=== PATIENT | male | born 1975 | race Caucasian/White ===

== ENCOUNTER → 2020-08-29 | Outpatient (CLI) | payer BC | END | disposition home or self-care (01) | LOC: DAH 10:00 → EDSTATUS 09-05 15:17 | PROVIDERS: ATTEND Family Medicine | DX: Z01.812 Encounter for preprocedural laboratory examination (principal); Z20.828 Contact with and (suspected) exposure to other viral communicable diseases; K31.7 Polyp of stomach and duodenum | CPT/HCPCS: C9803; U0003 ==

== ENCOUNTER 2020-09-26 06:25 | Day surgery (SDC) | payer BC ==
[2020-09-26] VITALS (9 sets, daily range): BP systolic 104–126; BP diastolic 58–90
[~2020-09-26] VITALS: Ht 172.7 cm; Wt 79.4 kg
[~2020-09-26 06:25] MED LIST: BUPR-317 PO; FLUT16H NASAL; OMEP-272 PO; SODIUM CHLORIDE 0.9% 1000ML 1,000 ML IV ONE; TAMS-1 PO; [UNRECOGNIZED DRUG - OTHER] PO
--- NOTE | 2020-09-26 07:30 | NUR ---
Holding area A&O. Denies pain. NPO 09/25/2020 2330. No implants noted. Side rails X2. VS stable. Emergency contact Mother Zulema Maradiaga [phone]. Belongings at bedside.
[2020-09-26] MEDS ORDERED: PROPOFOL 10 MG/ML 20ML VIAL IV ONE ×3 (08:36→08:44)
== END 2020-09-26 09:48 | disposition home or self-care (01) ==
LOC: DAH 06:25 → ENDO 06:25
PROVIDERS: ATTEND Internal Medicine Gastroenterology
DX: K31.7 Polyp of stomach and duodenum (principal); F41.9 Anxiety disorder, unspecified; F32.9 Major depressive disorder, single episode, unspecified; Z79.899 Other long term (current) drug therapy; Z20.828 Contact with and (suspected) exposure to other viral communicable diseases
CPT/HCPCS: 43236; 43251; A4215 ×2; A4221; A4222; A4223; A4606; A4620; A4657; A4663; C9803; J2704 ×3; J7030; U0003